=== PATIENT | female | born 1985 | race Two or more races ===

== ENCOUNTER 2017-02-14 00:58 | Emergency (ER) | payer OTHER ==
[~2017-02-14] VITALS: Ht 157.5 cm; Wt 60.6 kg
[~2017-02-14 00:58] MED LIST: ABILIFY15 MG PO; ADDERALL XR 2020 MG PO; ADDERALL XR 5 MG5 MG PO; AMBIEN5 MG PO; BACTRIM,SEPT1 TABLET PO; CLEOCIN150 MG PO; CLONAZEPAM0.5 MG PO; CLONAZEPAM1 MG PO; CLOTRIMAZOLE-745 GM VG; COLACE100 MG PO; DIFLUCAN150 MG PO; ENDOCET 5-3251 EACH PO; ESCITALOPRAM OX20 MG PO; FLONASE16 G1 BOTH NARES; FLOVENT 11120 INHALA IH; IBUPROFEN800 MG PO; KLONOPIN2 MG PO; LORATADINE10 M2 PO; NAPROXEN500 MG PO; OXCARBAZEPINE300 MG PO; PERCOCET 5/31 TABLET PO; PREDNISONE20 MG PO; PROAIR HFA8.5 GM IH; SEROQUEL12.5 MG PO; STRATTERA40 MG PO; ULTRAM50 MG PO; VISTARIL25 MG PO; ZOLOFT100 MG PO; ZOLOFT50 MG PO
[2017-02-14] MEDS ORDERED: PROAIR HFA8.5 GM IH (01:53)
[2017-02-14] MEDS ORDERED: HYCODAN SYRUP480 ML PO (01:53)
[2017-02-14 02:05] VITALS: BP 127/98
== END 2017-02-14 02:06 | disposition home or self-care (01) ==
LOC: EXP 00:58 → EME 00:58 → EXP 02:06
DX: J06.9 Acute upper respiratory infection, unspecified (principal)
CPT/HCPCS: 71020; 94640; 99281; 99284

== ENCOUNTER 2017-06-04 22:18 | Emergency (ER) | payer OTHER ==
[~2017-06-04] VITALS: Ht 157.5 cm; Wt 63.1 kg
[~2017-06-04 22:18] MED LIST changes: +HYCODAN SYRUP480 ML PO
[2017-06-04 22:35] VITALS: BP 155/89
== END 2017-06-04 23:44 | disposition home or self-care (01) ==
LOC: EME 22:18
PROC: 2W3KX1Z Immobilization of Left Finger using Splint (ICD-10-PCS; principal; 2017-06-04)
DX: S60.022A Contusion of left index finger without damage to nail, initial encounter (principal); W22.8XXA Striking against or struck by other objects, initial encounter; F17.200 Nicotine dependence, unspecified, uncomplicated
CPT/HCPCS: 73140; 99281; 99283

== ENCOUNTER 2017-10-17 19:58 | Emergency (ER) | payer OTHER ==
[~2017-10-17] VITALS: Ht 157.5 cm; Wt 63.5 kg
[2017-10-17 20:45] LABS: HEMATOCRIT 36.8 % (36.0-46.0); HEMOGLOBIN 12.4 G/DL (11.9-15.5); MCH 23.9 PG (29.0-34.0); MCHC 33.7 G/DL (30.0-36.0); PLATELET COUNT 409 K/uL (156-360); RBC DIS.WIDTH-CV 14.4 % (11.8-14.6); RBC DIS.WIDTH-SD 35.7 % (39-53); RED BLOOD COUNT 5.18 M/uL (3.80-5.20); WHITE BLOOD COUNT 10.2 K/uL (4.1-10.2)
[2017-10-17 20:48] LABS: CHLORIDE 105 mEq/L (99-109); POTASSIUM 3.4 mEq/L (3.7-5.4); SODIUM 141 mEq/L (136-147)
[2017-10-17 20:50] LABS: GLUCOSE 88 mg/dL (70-99)
[2017-10-17 20:54] LABS: CREATININE 0.8 mg/dL (0.6-1.3); GFR ESTIMATE (CALCULATED) > 59 mL/min/
[2017-10-17 20:55] LABS: UREA NITROGEN (BUN) 9 mg/dL (9-23)
[2017-10-17 21:59] LABS: TROP-I INTERPRETATION NEGATIVE; TROPONIN-I < 0.01 ng/mL (0.0-0.30)
[2017-10-17 23:23] LABS: TROP-I INTERPRETATION NEGATIVE; TROPONIN-I < 0.01 ng/mL (0.0-0.30)
[2017-10-17 23:39] VITALS: BP 116/86
== END 2017-10-17 23:41 | disposition home or self-care (01) ==
LOC: EME 19:58
PROVIDERS: Physician Assistant Medical
DX: R07.9 Chest pain, unspecified (principal); E78.5 Hyperlipidemia, unspecified; F17.200 Nicotine dependence, unspecified, uncomplicated; R73.03 Prediabetes; J45.909 Unspecified asthma, uncomplicated; R56.9 Unspecified convulsions; F32.9 Major depressive disorder, single episode, unspecified; F41.9 Anxiety disorder, unspecified; Z87.440 Personal history of urinary (tract) infections
CPT/HCPCS: 71020; 80048; 84484; 85027; 85379; 93005; 99281; 99284

== ENCOUNTER 2018-02-20 06:47 | Day surgery (SDC) | payer OTHER ==
[~2018-02-20] VITALS: Ht 157.5 cm; Wt 62.0 kg
[~2018-02-20 06:47] MED LIST changes: +ALLERGY RELIEF180 MG PO; +KLONOPIN1 MG PO; -KLONOPIN2 MG PO; +LATUDA20 MG PO; +MEDICAL MARIJUANA IH; +NEURONTIN100 MG PO; +TRAMADOL HCL50 MG PO
[2018-02-20 07:37] VITALS: BP 106/62
[2018-02-20 08:02] LABS: BENZODIAZEPINES, URINE SCREEN Negative (200 ng/mL)
[2018-02-20] MEDS ORDERED: MOTRIN800 MG PO (09:54)
[2018-02-20] MEDS ORDERED: PERCOCET 5/31 TABLET PO (09:54)
[2018-02-20 11:08] VITALS: BP 124/73
[2018-02-20 11:55] VITALS: BP 110/70
== END 2018-02-20 12:35 | disposition home or self-care (01) ==
LOC: SDC
PROVIDERS: Anesthesiology
DX: N83.02 Follicular cyst of left ovary (principal); N83.12 Corpus luteum cyst of left ovary; G89.29 Other chronic pain; R10.2 Pelvic and perineal pain; F17.210 Nicotine dependence, cigarettes, uncomplicated
CPT/HCPCS: 80306 90; 88307; J0131; J1100; J1170; J1885; J2250; J2405; S0020